=== PATIENT | male | born 1945 | race Caucasian/White ===

== ENCOUNTER 2018-11-26 13:06 | Inpatient (IN) | payer MEDICARE, OTHER ==
--- NOTE | 2018-11-26 13:58 | ER Document Report ---
ED Medical Screen (RME) - General Chief Complaint: Shortness Of Breath Stated Complaint: SHORTNESS OF BREATH Time Seen by Provider: 11/26/18 13:54 Primary Care Provider: JUSTINE KWAN MD [Primary Care Provider] - Follow up as needed Mode of Arrival: Ambulatory Information source: Patient TRAVEL OUTSIDE OF THE [place] IN LAST 30 DAYS: No - HPI Patient complains to provider of: SOB Notes: 11/26/18 13:56 Patient here with complaints of shortness of breath with leg swelling and chest pain. Patient has a history of congestive heart failure. He also has a history of atrial fibrillation. Exam No distress, nontoxic. Lung sounds diminished to the bilateral bases. Irregular heart rate. Bilateral lower extremity edema noted. Plan CBC, CMP, CPK, CK-MB, BMP, chest x-ray, EKG, troponin, coags. An initial examination was made on the patient as part of the triage process, and it was determined a more comprehensive evaluation was necessary. Initial labs were ordered and patient was transferred to another provider in the ED who assumed care and finished evaluation and plan. - Related Data Allergies/Adverse Reactions: No Known Allergies Allergy (Unverified 11/05/18 14:18) Past Medical History - Past Medical History Cardiac Medical History: Reports: Hx Atrial Fibrillation, Hx Congestive Heart Failure, Hx Coronary Artery Disease, Hx Hypertension Renal/ Medical History: Denies: Hx Peritoneal Dialysis Physical Exam - Vital signs Vitals: Pulse Resp BP Pulse Ox 84 22 H 123/84 92 11/26/18 13:39 11/26/18 13:39 11/26/18 13:39 11/26/18 13:39 Course - Vital Signs Vital signs: Temp Pulse Resp BP Pulse Ox 84 22 H 123/84 92 11/26/18 13:39 11/26/18 13:39 11/26/18 13:39 11/26/18 13:39 Doctor's Discharge - Discharge Referrals: JUSTINE KWAN MD [Primary Care Provider] - Follow up as needed
--- NOTE | 2018-11-26 14:28 | RADIOLOGY REPORT (SQ) ---
EXAM DESCRIPTION: CHEST 2 VIEWS COMPLETED DATE/TIME: 11/26/2018 2:04 pm REASON FOR STUDY: shortness of breath COMPARISON: None. EXAM PARAMETERS: NUMBER OF VIEWS: two views TECHNIQUE: Digital Frontal and Lateral radiographic views of the chest acquired. RADIATION DOSE: NA LIMITATIONS: none FINDINGS: LUNGS AND PLEURA: No opacities, masses or pneumothorax. No pleural effusion. MEDIASTINUM AND HILAR STRUCTURES: No masses or contour abnormalities. HEART AND VASCULAR STRUCTURES: Heart normal size. No evidence for failure. BONES: No acute findings. HARDWARE: None in the chest. OTHER: No other significant finding. IMPRESSION: NO ACUTE RADIOGRAPHIC FINDING IN THE CHEST. TECHNICAL DOCUMENTATION: JOB ID: [id number] [employer]- All Rights Reserved Reading location - IP/workstation name: [email or web address]
[2018-11-26 16:01] LABS: ABSOLUTE BASOPHILS # (AUTO) 0.1 10^3/uL (0.0-0.2); ABSOLUTE EOSINOPHILS # (AUTO) 0.1 10^3/uL (0.0-0.6); ABSOLUTE LYMPHOCYTES (AUTO) 0.9 10^3/uL (0.5-4.7); ABSOLUTE MONOCYTES (AUTO) 1.1 10^3/uL (0.1-1.4); ABSOLUTE NEUT (AUTO) 6.6 10^3/uL (1.7-8.2); BASOPHILS % (AUTO) 0.7 % (0-2); EOSINOPHILS % (AUTO) 0.9 % (0-6); HEMATOCRIT 36.7 % (37.9-51.0); HEMOGLOBIN 11.8 g/dL (13.5-17.0); LYMPHOCYTES % (AUTO) 10.1 % (13-45); MEAN CORPUSCULAR HEMOGLOBIN 27.6 pg (27.0-33.4); MEAN CORPUSCULAR HGB CONC 32.1 g/dL (32.0-36.0); MEAN CORPUSCULAR VOLUME 86 fl (80-97); MONOCYTES % (AUTO) 12.2 % (3-13); PLATELET COUNT 257 10^3/uL (150-450); RED BLOOD COUNT 4.27 10^6/uL (4.35-5.55); RED CELL DISTRIBUTION WIDTH 17.2 % (11.5-14.0); SEGMENTED NEUTROPHILS % (AUTO) 76.1 % (42-78); TOTAL CELLS COUNTED % (AUTO) 100 %; WHITE BLOOD COUNT 8.7 10^3/uL (4.0-10.5)
[2018-11-26 16:08] LABS: INTERNATIONAL RATION (INR) 2.38; PROTHROMBIN TIME 27.1 SEC (11.4-15.4)
[2018-11-26 16:09] LABS: PARTIAL THROMBOPLASTIN TIME 47.5 SEC (23.5-35.8)
[2018-11-26 16:25] LABS: ALANINE AMINOTRANSFERASE 83 U/L (21-72); ALBUMIN 3.8 g/dL (3.5-5.0); ALKALINE PHOSPHATASE 86 U/L (38-126); ANION GAP 12 (5-19); ASPARTATE AMINO TRANSFERASE 93 U/L (17-59); BILIRUBIN,DIRECT 0.5 mg/dL (0.0-0.4); BILIRUBIN,TOTAL 0.8 mg/dL (0.2-1.3); BLOOD UREA NITROGEN 18 mg/dL (7-20); CALCIUM 9.8 mg/dL (8.4-10.2); CARBON DIOXIDE 32 mmol/L (22-30); CHLORIDE 94 mmol/L (98-107); GLUCOSE 108 mg/dL (75-110); POTASSIUM 4.2 mmol/L (3.6-5.0); SODIUM 138.1 mmol/L (137-145)
[2018-11-26 16:28] LABS: CREATINE KINASE < 20 U/L (55-170)
[2018-11-26 16:37] LABS: CREATINE KINASE MB 0.67 ng/mL (<4.55); TROPONIN I 0.014 ng/mL
[2018-11-26] MEDS ORDERED: FUROSEMIDE INJ/PF 100 MG/10 ML SDV IV ONE (19:15)
--- NOTE | 2018-11-26 19:17 | ER Document Report ---
ED General - General Chief Complaint: Shortness Of Breath Stated Complaint: SHORTNESS OF BREATH Time Seen by Provider: 11/26/18 13:54 Primary Care Provider: JUSTINE KWAN MD [Primary Care Provider] - Follow up as needed Mode of Arrival: Ambulatory Notes: Patient is a 73-year-old male with past medical history of hypertension, hyperlipidemia, CHF, coronary artery disease, presents due to concerns of progressively worsening bilateral lower extremity edema, generalized weakness, and shortness of breath. States that his symptoms started over the last 3 months, has become much more prominent in the past several weeks. Regards these as being moderate to severe. Worsened by exertion or standing for prolonged period of time. Has been trying with his primary care physician to get the sym ptoms under control with changing from furosemide to Bumex and starting on spironolactone as well as compression stockings but notes that these interventions have not been successful in reducing the edema in his legs or improving his shortness of breath. Patient notes orthopnea, states that he is n o longer able to sleep in his bed and mostly sleeps in the recliner. Denies any current chest pain. TRAVEL OUTSIDE OF THE [place] IN LAST 30 DAYS: No - Related Data Allergies/Adverse Reactions: No Known Allergies Allergy (Unverified 11/05/18 14:18) Past Medical History - General Information source: Patient - Social History Smoking Status: Former Smoker Chew tobacco use (# tins/day): No Frequency of alcohol use: None Drug Abuse: None Lives with: Spouse/Significant other Family History: Reviewed & Not Pertinent Patient has suicidal ideation: No Patient has homicidal ideation: No - Past Medical History Cardiac Medical History: Reports: Hx Atrial Fibrillation, Hx Congestive Heart Failure, Hx Coronary Artery Disease, Hx Hypertension Renal/ Medical History: Denies: Hx Peritoneal Dialysis Review of Systems - Review of Systems Notes: Constitutional: Negative for fever. HENT: Negative for sore throat. Eyes: Negative for visual changes. Cardiovascular: Negative for chest pain. Respiratory: Positive for shortness of breath. Gastrointestinal: Negative for abdominal pain, vomiting or diarrhea. Genitourinary: Negative for dysuria. Musculoskeletal: Positive for bilateral lower extremity edema Skin: Negative for rash. Neurological: Negative for headaches, weakness or numbness. 10 point ROS negative except as marked above and in HPI. Physical Exam - Vital signs Vitals: Pulse Resp BP Pulse Ox 84 22 H 123/84 92 05/20/19 13:39 11/26/18 13:39 11/26/18 13:39 11/26/18 13:39 Interpretation: Tachypneic Notes: PHYSICAL EXAMINATION: GENERAL: Elderly male, somewhat frail in appearance but in no acute distress HEAD: Atraumatic, normocephalic. EYES: Pupils equal round and reactive to light, extraocular movements intact, sclera anicteric, conjunctiva are normal. ENT: nares patent, oropharynx clear without exudates. Moist mucous membranes. NECK: Normal range of motion, supple without lymphadenopathy LUNGS: Coarse rales throughout particularly the bases bilaterally. No overt distress or retractions. HEART: Irregular regular rate and rhythm without murmurs ABDOMEN: Soft, nontender, normoactive bowel sounds. No guarding, no rebound. No masses appreciated. EXTREMITIES: Normal range of motion, 4+ pitting edema bilaterally that is equal and symmetric to just above the level of the knee. no cyanosis. NEUROLOGICAL: No focal neurological deficits. Moves all extremities spontaneously and on command. PSYCH: Normal mood, normal affect. SKIN: Warm, Dry, normal turgor, no rashes or lesions noted. Course - Re-evaluation Re-evalutation: 11/26/18 19:14 Patient presents with progressively worsening bilateral lower extremity edema, increasing shortness of breath and orthopnea over the last several months although much worse in the past several weeks. The patient has gained 4.2 kg since the end of October 2018. His BNP is also elevated relative to that time. He has 3+ pitting edema above the level of the knees bilaterally and does have coarse rales in all lung lopez although chest x-ray does not show overt pulmonary edema. The patient has been following with his employment office clerk and has had increasing doses of Bumex without any relief. He has also been wearing compression stockings. At this point it appears that the patient has failed outpatient management and require hospitalization for IV diuresis. He and his are in agreement. IV furosemide is been initiated. Will continue to monitor until hospitalist is able to accept the patient. 11/26/18 19:44 I discussed this case with the hospitalist Dr. Gray. He has accepted the patient for admission. - Vital Signs Vital signs: Temp Pulse Resp BP Pulse Ox 97.3 F 84 16 100/79 98 11/26/18 18:30 11/26/18 18:30 11/26/18 18:30 11/26/18 18:30 11/26/18 18:30 - Laboratory Result Diagrams: 11/26/18 15:34 11/26/18 15:34 Laboratory results interpreted by me: 11/26/18 11/26/18 11/26/18 15:34 15:34 15:34 RBC 4.27 L Hgb 11.8 L Hct 36.7 L RDW 17.2 H Lymphocytes % 10.1 L PT 27.1 H APTT 47.5 H Chloride 94 L Carbon Dioxide 32 H Creatinine 1.28 H Est GFR (Non-Af Amer) 55 L Direct Bilirubin 0.5 H AST 93 H ALT 83 H Creatine Kinase < 20 L NT-Pro-B Natriuret Pep 11/26/18 15:34 RBC Hgb Hct RDW Lymphocytes % PT APTT Chloride Carbon Dioxide Creatinine Est GFR (Non-Af Amer) Direct Bilirubin AST ALT Creatine Kinase NT-Pro-B Natriuret Pep 83851 H - Diagnostic Test Radiology reviewed: Image reviewed, Reports reviewed Radiology results interpreted by me: 11/26/18 19:15 Chest x-ray: No overt pulmonary edema - EKG Interpretation by Me Additional EKG results interpreted by me: 11/26/18 19:15 Atrial fibrillation, rates ranging between [address] elevations or depressions. QTC is 477. Discharge - Discharge Clinical Impression: Bilateral lower extremity edema, Shortness of breath CHF exacerbation Qualifiers: Heart failure type: unspecified Qualified Code(s): I50.9 - Heart failure, unspecified Condition: Fair Disposition: ADMITTED INPATIENT Admitting Provider: Marina (Hospitalist) Unit Admitted: Medical Floor Referrals: JUSTINE KWAN MD [Primary Care Provider] - Follow up as needed
[2018-11-26] MEDS ORDERED: FUROSEMIDE INJ/PF 20 MG/2 ML SDV IV ONE (19:44)
[2018-11-26] MEDS ORDERED: FUROSEMIDE INJ/PF 40 MG/4 ML SDV ONE (19:45)
[2018-11-26] MEDS ORDERED: MAGNESIUM HYDROXIDE SUSP 30 ML UDCUP PO PRN (20:38)
[2018-11-26] MEDS ORDERED: TEMAZEPAM 7.5 MG CAPSULE PO PRN (20:38)
[2018-11-26] MEDS ORDERED: ONDANSETRON HCL INJ/PF 4 MG/2 ML SDV IV PRN (20:38)
[2018-11-26] MEDS ORDERED: MAG HYDROX/AL HYDROX/SIMETH SUSP 30 ML UDCUP PO PRN (20:38)
[2018-11-26] MEDS ORDERED: MORPHINE SULFATE 10 MG/ML INJ IV PRN ×4 (20:46→21:01)
[2018-11-26] MEDS ORDERED: ACETAMINOPHEN 325 MG TABLET PO PRN (20:46)
[2018-11-26] MEDS ORDERED: DOPAMINE HCL/DEXTROSE 5%-WATER 800 MG/250 ML RTUINJ IV PRN (20:53)
[2018-11-26] MEDS: HEPARIN SOD (PORCINE) 5,000 UNIT/ML 1 ML SYRINGE SUBCUT SCH (21:33)
[2018-11-26] MEDS: FAMOTIDINE 20 MG TABLET PO SCH (21:33)
[2018-11-26] MEDS: NORMAL SALINE 250 ML with FUROSEMIDE 250 MG IV PRN ×2 (21:56)
[2018-11-26] MEDS ORDERED: FAMOTIDINE 20 MG TABLET PO SCH (22:00)
[2018-11-26 22:55] LABS: CREATINE KINASE MB 0.63 ng/mL (<4.55)
[2018-11-26 22:59] LABS: TROPONIN I 0.032 ng/mL
--- NOTE | 2018-11-27 04:04 | PDOC H&P ---
History of Present Illness Admission Date/PCP: 11/26/18 19:58 JUSTINE KWAN Patient complains of: Edema History of Present Illness: GARCIA SHERMAN is a 73 year old male who presents to the emergency room with a 3-month history of gradually worsening edema of his lower extremities. He admits that along with his gradually worsening edema he has began experiencing dyspnea on exertion, generalized weakness and most recently dyspnea at rest with severe orthopnea causing him to have to sleep sitting up in a chair. He has also noted development of 3 bullous lesions of his bilateral extremities. He admits that his dyspnea is significantly increased with any type of exertion but also with standing upright. He has been seeing his primary care physician and a apparel patternmaker about this problem but despite numerous medication changes and courses of treatment he has not shown any improvement. In the emergency room he was found to have an elevated BNP at 12,500 and significant edema. He was subsequently admitted to the hospital for further evaluation and treatment. Past Medical History Cardiac Medical History: Reports: Atrial Fibrillation, Congestive Heart Failure, Coronary Artery Disease, Hypertension Pulmonary Medical History: Denies: Asthma, Chronic Obstructive Pulmonary Disease (COPD), Respiratory Failure EENT Medical History: Reports: Eyes - Prescription lenses Denies: Ears - Hearing aids Neurological Medical History: Denies: Hemorrhagic CVA, Ischemic CVA, Seizures Endocrine Medical History: Denies: Diabetes Mellitus Type 1, Diabetes Mellitus Type 2, Hyperthyroidism, Hypothyroidism Renal/ Medical History: Denies: Chronic Kidney Disease, Nephrolithiasis Malignancy Medical History: Reports: None GI Medical History: Denies: Cirrhosis, Hepatitis Musculoskeltal Medical History: Denies: Arthritis, Gout Skin Medical History: Denies: Eczema, Psoriasis Psychiatric Medical History: Reports: Tobacco Dependency Denies: Alcohol Dependency, Substance Abuse Traumatic Medical History: Reports: None Hematology: Denies: Anemia, Bleeding Tendencies Infectious Medical History: Reports: None Past Surgical History Past Surgical History: Reports: None Social History Information Source: Patient Lives with: Spouse/Significant other Smoking Status: Former Smoker Frequency of Alcohol Use: None Hx Recreational Drug Use: No Drugs: None Hx Prescription Drug Abuse: No - Advance Directive Resuscitation Status: Full Code Surrogate healthcare decision maker:: Merced Sherman Family History Family History: CAD, Malignancy, Other - Alzheimer's disease, congestive heart failure. denies: DM, Hypertension Parental Family History Reviewed: Yes Children Family History Reviewed: No Sibling(s) Family History Reviewed.: Yes Medication/Allergy Home Medications: Apixaban [Eliquis 5 mg Tablet] 5 mg PO BID 11/26/18 Bumetanide [Bumex 1 mg Tablet] 1 mg PO DAILY 11/26/18 Carvedilol [Coreg 3.125 mg Tablet] 3.125 mg PO Q12 11/26/18 Furosemide [Lasix 40 mg Tablet] 40 mg PO BID 11/26/18 Lovastatin [Mevacor] 10 mg PO DAILY 11/26/18 Metformin HCl [Glucophage] 500 mg PO TID 11/26/18 Metoprolol Succinate [Toprol Xl 25 mg Tab.sr] 25 mg PO DAILY 11/26/18 Spironolactone [Aldactone 25 mg Tablet] 25 mg PO BID 11/26/18 Valsartan/Hydrochlorothiazide [Diovan Hct 160-25 mg Tablet] 1 tab PO DAILY 11/26/18 Allergies/Adverse Reactions: No Known Allergies Allergy (Unverified 11/05/18 14:18) Review of Systems Constitutional: PRESENT: as per HPI, weakness. ABSENT: chills, fever(s) Eyes: ABSENT: visual disturbances, other - Ocular pain Ears: ABSENT: hearing changes, other - Ear pain Nose, Mouth, and Throat: ABSENT: mouth pain, sore throat Cardiovascular: PRESENT: as per HPI, dyspnea on exertion, edema, orthropnea. ABSENT: chest pain, palpitations Respiratory: PRESENT: as per HPI, dyspnea. ABSENT: cough Gastrointestinal: ABSENT: abdominal pain, constipation, diarrhea, nausea, vomiting Genitourinary: ABSENT: difficulty urinating, dysuria, hematuria Musculoskeletal: ABSENT: back pain, joint swelling, muscle weakness Integumentary: PRESENT: lesions - 3 bullous lesions present on the bilateral lower extremities left proximal lateral leg left medial ankle and right posterior heel. ABSENT: pruritus, rash Neurological: ABSENT: confusion, convulsions, focal weakness, memory loss, syncope Psychiatric: ABSENT: anxiety, depression Endocrine: ABSENT: cold intolerance, heat intolerance Hematologic/Lymphatic: ABSENT: easy bleeding, easy bruising Physical Exam Vital Signs: Temp Pulse Resp BP Pulse Ox 97.3 F 84 16 100/79 98 11/26/18 18:30 11/26/18 18:30 11/26/18 18:30 11/26/18 18:30 11/26/18 18:30 Intake & Output 11/24/18 11/25/18 11/26/18 23:59 23:59 23:59 Weight 79.5 kg General appearance: PRESENT: no acute distress, cooperative Head exam: PRESENT: atraumatic, normocephalic Eye exam: ABSENT: conjunctival injection, scleral icterus Ear exam: PRESENT: normal external ear exam. ABSENT: bleeding, drainage Mouth exam: PRESENT: dry mucosa, neck supple Neck exam: PRESENT: JVD - Moderate bilateral JVD at 45 degrees elevation. ABSENT: thyromegaly, tracheal deviation Respiratory exam: PRESENT: decreased breath sounds - Decreased breath sounds at both bases, rales - Bibasilar fine rales, symmetrical, tachypnea. ABSENT: prolonged expiratory phas, rhonchi, wheezes Cardiovascular exam: PRESENT: gallop - S4 gallop noted, RRR, rubs. ABSENT: c licks Pulses: PRESENT: normal radial pulses. ABSENT: normal dorsalis pedis pul - Dorsalis pedis pulses decreased due to edema Vascular exam: PRESENT: normal capillary refill. ABSENT: pallor GI/Abdominal exam: PRESENT: normal bowel sounds, soft Rectal exam: PRESENT: deferred Extremities exam: PRESENT: pedal edema, other - 3+ pitting pretibial edema. ABSENT: joint swelling Musculoskeletal exam: PRESENT: full ROM. ABSENT: deformity, dislocation Neurological exam: PRESENT: alert, oriented to person, oriented to place, o riented to time, oriented to situation, CN II-XII grossly intact. ABSENT: motor sensory deficit Psychiatric exam: PRESENT: appropriate affect, normal mood Skin exam: PRESENT: dry, intact, warm. ABSENT: jaundice, rash, urticaria Results Laboratory Results: 11/26/18 15:34 11/26/18 15:34 11/26/18 11/26/18 15:34 15:34 WBC 8.7 RBC 4.27 L Hgb 11.8 L Hct 36.7 L MCV 86 MCH 27.6 MCHC 32.1 RDW 17.2 H Plt Count 257 Seg Neutrophils % 76.1 Lymphocytes % 10.1 L Monocytes % 12.2 Eosinophils % 0.9 Basophils % 0.7 Absolute Neutrophils 6.6 Absolute Lymphocytes 0.9 Absolute Monocytes 1.1 Absolute Eosinophils 0.1 Absolute Basophils 0.1 Sodium 138.1 Potassium 4.2 Chloride 94 L Carbon Dioxide 32 H Anion Gap 12 BUN 18 Creatinine 1.28 H Est GFR ( Amer) > 60 Est GFR (Non-Af Amer) 55 L Glucose 108 Calcium 9.8 Total Bilirubin 0.8 AST 93 H ALT 83 H Alkaline Phosphatase 86 Total Protein 7.0 Albumin 3.8 11/26/18 11/26/18 15:34 15:34 Creatine Kinase < 20 L CK-MB (CK-2) 0.67 Troponin I 0.014 NT-Pro-B Natriuret Pep [id number] H Impressions: Chest X-Ray 11/26/18 00:00 IMPRESSION: NO ACUTE RADIOGRAPHIC FINDING IN THE CHEST. Assessment and Plan - Diagnosis (1) CHF exacerbation Qualifiers: Heart failure type: unspecified Qualified Code(s): I50.9 - Heart failure, unspecified Is this a current diagnosis for this admission?: Yes Plan: Patient will be treated with a Lasix infusion and a renal dose dopamine infusion. A cardiology consultation will be obtained and an echocardiogram will be performed. Serial cardiac enzymes will be obtained and the patient will be observed closely on IMCU. He will use morphine sulfate 2-4 mg IV every 2 hours as needed for dyspnea or pain on a sliding scale basis. (2) Hypertension Qualifiers: Hypertension type: essential hypertension Qualified Code(s): I10 - Essential (primary) hypertension Is this a current diagnosis for this admission?: Yes Plan: Patient will be continued on appropriate antihypertensive regiment that will also help to treat his congestive heart failure. Cardiology consultation will be of great deal of value in determining the best regiment for this patient. (3) Coronary artery disease Qualifiers: Coronary Disease-Associated Artery/Lesion type: [place] artery [place] vs. transplanted heart: [place] heart Associated angina: angina presence unspecified Qualified Code(s): I25.10 - Atherosclerotic heart disease of [place] coronary artery without angina pectoris Is this a current diagnosis for this admission?: Yes Plan: Patient be continued on appropriate regimen for ongoing prevention of coronary artery disease which will be integrated into the treatment of his congestive heart failure. Cardiology consultation will be invaluable and determining the best regimen for this patient. (4) Acute bullous dermatitis Is this a current diagnosis for this admission?: Yes Plan: Patient's bullous dermatitis is due to acute edema of his lower extremities causing stasis-like changes and bullae. Treatment will be to cleanse the area well with an antibacterial soap and after thorough drying placement of a Tegaderm dressing. - Time Time Spent with patient: 25-34 minutes Medications reviewed and adjusted accordingly: Yes Anticipated discharge: Home - Inpatient Certification Based on my medical assessment, after consideration of the patient's comorbidities, presenting symptoms, or acuity I expect that the services needed warrant INPATIENT care.: Yes I certify that my determination is in accordance with my understanding of Medicare's requirements for reasonable and necessary INPATIENT services [42 CFR 412.3e].: Yes Medical Necessity: Failure to Improve With Outpatient Therapy, Need Close Monito ring Due to Risk of Patient Decompensation, Need For Continuous Telemetry Monitoring, Risk of Complication if Not Cared For in Hospital
[2018-11-27 04:53] LABS: HEMOGLOBIN 12.1 g/dL (13.5-17.0); MEAN CORPUSCULAR HEMOGLOBIN 27.4 pg (27.0-33.4); MEAN CORPUSCULAR VOLUME 86 fl (80-97); PLATELET COUNT 226 10^3/uL (150-450); RED BLOOD COUNT 4.43 10^6/uL (4.35-5.55)
[2018-11-27 05:21] LABS: ANION GAP 17 (5-19); BLOOD UREA NITROGEN 21 mg/dL (7-20); CARBON DIOXIDE 31 mmol/L (22-30); CHLORIDE 93 mmol/L (98-107); CHOLESTEROL 150.81 mg/dL (0-200); CREATINE KINASE 22 U/L (55-170); GLUCOSE 107 mg/dL (75-110); POTASSIUM 4.1 mmol/L (3.6-5.0); SODIUM 141.3 mmol/L (137-145); TRIGLYCERIDES 104 mg/dL (<150)
[2018-11-27 05:28] LABS: CREATINE KINASE MB 0.59 ng/mL (<4.55); TROPONIN I 0.012 ng/mL
[2018-11-27] MEDS: HEPARIN SOD (PORCINE) 5,000 UNIT/ML 1 ML SYRINGE SUBCUT SCH ×3 (05:30→21:13)
[2018-11-27 05:31] LABS: DIRECT LDL 100 mg/dL (<100)
[2018-11-27 05:34] LABS: FREE T4 (FREE THYROXINE) 1.8 ng/dL (0.78-2.19)
[2018-11-27 05:39] LABS: FREE T3 2.87 pg/mL (2.77-5.27)
[2018-11-27 06:37] LABS: THYROID STIMULATING HORMONE 1.44 uIU/mL (0.47-4.68)
[2018-11-27] MEDS: DOCUSATE SODIUM 100 MG CAPSULE PO SCH ×2 (09:12→17:12)
[2018-11-27 10:36] LABS: CREATINE KINASE MB 0.49 ng/mL (<4.55); TROPONIN I 0.016 ng/mL
[2018-11-27] MEDS: NORMAL SALINE 250 ML with FUROSEMIDE 250 MG IV PRN ×2 (10:42)
--- NOTE | 2018-11-27 16:58 | PDOC PROGRESS REPORT ---
Subjective Progress Note for:: 11/27/18 Subjective:: GARCIA GARCIA is a 73 year old male who presents to the emergency room with a 3-month history of gradually worsening edema of his lower extremities. He admits that along with his gradually worsening edema he has began experiencing dyspnea on exertion, generalized weakness and most recently dyspnea at rest with severe orthopnea causing him to have to sleep sitting up in a chair. He has also noted development of 3 bullous lesions of his bilateral extremities. He admits that his dyspnea is significantly increased with any type of exertion but also with standing upright. He has been seeing his primary care physician and a food science professor about this problem but despite numerous medication changes and courses of treatment he has not shown any improvement. In the emergency room he was found to have an elevated BNP at 12,500 and significant edema. He was frederick bsequently admitted to the hospital for further evaluation and treatment. 11/27/2018: Patient was started on Lasix drip. He actually feels better. Reason For Visit: ACUTE ON CHRONIC CONGESTIVE HEART FAILURE Physical Exam Vital Signs: Temp Pulse Resp BP Pulse Ox 97.4 F 107 H 16 117/57 L 100 11/27/18 11:48 11/27/18 15:00 11/27/18 11:48 11/27/18 15:00 11/27/18 11:48 Intake & Output 11/26/18 11/27/18 11/28/18 06:59 06:59 06:59 Intake Total 400 1410 Output Total 1895 2425 Balance -1495 -1015 Weight 168 lb 13.985 oz Exam: Patient is no acute distress Alert oriented to time place person No anxiety or depression Head: atraumatic normocephalic Pupils: are equal reactive Neck: is supple and trachea is central no lymphadenopathy No pharyngeal erythema or exudates Heart: Regular rate and rhythm. +2/3 bilateral lower extremity pitting edema Lungs: Bilateral scattered crackles Abdomen: nontender nondistended Neurological exam: unremarkable Musculoskeletal: No joint swelling or effusion chronic lower back pain and tenderness No suicidal or homicidal ideation Results Laboratory Results: 11/27/18 04:24 11/27/18 04:24 11/27/18 11/27/18 11/27/18 04:24 04:24 04:24 WBC 10.0 RBC 4.43 Hgb 12.1 L Hct 38.0 MCV 86 MCH 27.4 MCHC 32.0 RDW 17.0 H Plt Count 226 Sodium 141.3 Potassium 4.1 Chloride 93 L Carbon Dioxide 31 H Anion Gap 17 BUN 21 H Creatinine 1.15 Est GFR ( Amer) > 60 Est GFR (Non-Af Amer) > 60 Glucose 107 Calcium 10.0 Magnesium 2.1 Triglycerides 104 Cholesterol 150.81 LDL Cholesterol Direct 100 VLDL Cholesterol 21.0 HDL Cholesterol 34 L TSH 1.44 Free T4 1.80 Free T3 pg/mL 2.87 11/26/18 11/26/18 11/26/18 15:34 15:34 22:10 Creatine Kinase < 20 L < 20 L CK-MB (CK-2) 0.67 Troponin I 0.014 NT-Pro-B Natriuret Pep [id number] H 11/26/18 11/27/18 11/27/18 22:10 04:24 04:24 Creatine Kinase Cancelled CK-MB (CK-2) 0.63 0.59 Troponin I 0.032 0.012 NT-Pro-B Natriuret Pep 11/27/18 11/27/18 11/27/18 04:24 09:48 09:48 Creatine Kinase 22 L < 20 L CK-MB (CK-2) 0.49 Troponin I 0.016 NT-Pro-B Natriuret Pep Impressions: Chest X-Ray 11/26/18 00:00 IMPRESSION: NO ACUTE RADIOGRAPHIC FINDING IN THE CHEST. Assessment and Plan - Diagnosis (1) CHF exacerbation Qualifiers: Heart failure type: unspecified Qualified Code(s): I50.9 - Heart failure, unspecified Is this a current diagnosis for this admission?: Yes Plan: Patient will be treated with a Lasix infusion and a renal dose dopamine infusion. A cardiology consultation will be obtained and an echocardiogram will be performed. Serial cardiac enzymes will be obtained and the patient will be observed closely on IMCU. He will use morphine sulfate 2-4 mg IV every 2 hours as needed for dyspnea or pain on a sliding scale basis. 11/27/2018: Continues on Lasix drip. Improving. Echocardiogram ordered. Cardiology consult is pending. (2) Bilateral lower extremity edema Is this a current diagnosis for this admission?: Yes Plan: Daily diuresis as above. Monitor renal function. (3) Coronary artery disease Qualifiers: Coronary Disease-Associated Artery/Lesion type: [place] artery [place] vs. transplanted heart: [place] heart Associated angina: angina presence unspecified Qualified Code(s): I25.10 - Atherosclerotic heart disease of [place] coronary artery without angina pectoris Is this a current diagnosis for this admission?: Yes Plan: Patient be continued on appropriate regimen for ongoing prevention of coronary artery disease which will be integrated into the treatment of his congestive heart failure. Cardiology consultation will be invaluable and determining the best regimen for this patient. 11/27/2018: Continue cardiac medications. Denies chest pain. (4) Hypertension Qualifiers: Hypertension type: essential hypertension Qualified Code(s): I10 - Essential (primary) hypertension Is this a current diagnosis for this admission?: Yes Plan: Patient will be continued on appropriate antihypertensive regiment that will also help to treat his congestive heart failure. Cardiology consultation will be of great deal of value in determining the best regiment for this patient. 11/27/2018: Continue current medications. Monitor blood pressure.
[2018-11-27 18:48] LABS: ANION GAP 15 (5-19); BLOOD UREA NITROGEN 17 mg/dL (7-20); CARBON DIOXIDE 35 mmol/L (22-30); CHLORIDE 89 mmol/L (98-107); GLUCOSE 145 mg/dL (75-110); SODIUM 138.8 mmol/L (137-145)
[2018-11-27 18:53] LABS: POTASSIUM 2.9 mmol/L (3.6-5.0)
[2018-11-27] MEDS ORDERED: POTASSIUM CHLORIDE 10 MEQ CAPSULE.ER PO ONE (21:00)
[2018-11-27] MEDS: FAMOTIDINE 20 MG TABLET PO SCH (21:13)
[2018-11-27] MEDS: POTASSIUM CHLORIDE 20 MEQ/50 ML RTU IV SCH ×2 (21:15→23:32)
[2018-11-27] MEDS: CARVEDILOL 3.125 MG TABLET PO SCH (21:26)
[2018-11-28] MEDS: HEPARIN SOD (PORCINE) 5,000 UNIT/ML 1 ML SYRINGE SUBCUT SCH (05:13)
[2018-11-28 06:29] LABS: HEMATOCRIT 34.2 % (37.9-51.0); MEAN CORPUSCULAR HEMOGLOBIN 27.5 pg (27.0-33.4); MEAN CORPUSCULAR HGB CONC 32.1 g/dL (32.0-36.0); MEAN CORPUSCULAR VOLUME 86 fl (80-97); PLATELET COUNT 203 10^3/uL (150-450); RED BLOOD COUNT 3.99 10^6/uL (4.35-5.55); RED CELL DISTRIBUTION WIDTH 17.5 % (11.5-14.0); WHITE BLOOD COUNT 8.3 10^3/uL (4.0-10.5)
[2018-11-28 07:04] LABS: ANION GAP 10 (5-19); BLOOD UREA NITROGEN 18 mg/dL (7-20); CALCIUM 9.1 mg/dL (8.4-10.2); CARBON DIOXIDE 36 mmol/L (22-30); CHLORIDE 92 mmol/L (98-107); GLUCOSE 94 mg/dL (75-110); SODIUM 137.5 mmol/L (137-145)
[2018-11-28 07:17] LABS: POTASSIUM 3.9 mmol/L (3.6-5.0)
[2018-11-28] MEDS ORDERED: (PENDING PHARMACY ID) (Valsartan/Hydrochlorothiazide [Diovan Hct 160-25 Mg Tablet] 1 TAB) PO SCH (10:00)
[2018-11-28] MEDS ORDERED: (PENDING PHARMACY ID) (Lovastatin [Mevacor] 10 MG) PO SCH (10:00)
[2018-11-28] MEDS: VALSARTAN 160 MG TABLET PO SCH (11:15)
[2018-11-28] MEDS: DOCUSATE SODIUM 100 MG CAPSULE PO SCH ×2 (11:15→19:09)
[2018-11-28] MEDS: FUROSEMIDE 40 MG TABLET PO SCH ×2 (11:16→19:09)
[2018-11-28] MEDS: CARVEDILOL 3.125 MG TABLET PO SCH ×2 (11:16→23:12)
[2018-11-28] MEDS: APIXABAN 5 MG TABLET PO SCH ×2 (11:16→19:11)
[2018-11-28] MEDS: SPIRONOLACTONE 25 MG TABLET PO SCH ×2 (11:16→19:09)
[2018-11-28] MEDS: HYDROCHLOROTHIAZIDE 25 MG TABLET PO SCH (11:16)
--- NOTE | 2018-11-28 11:24 | EKG REPORT ---
SEVERITY:- ABNORMAL ECG - ATRIAL FIBRILLATION BORDERLINE IVCD WITH LAD INFERIOR INFARCT, OLD ANTEROLATERAL INFARCT, OLD BORDERLINE PROLONGED QT INTERVAL : Confirmed by: Cora Wu 28-Nov-2018 11:23:55
--- NOTE | 2018-11-28 15:24 | PDOC PROGRESS REPORT ---
Subjective Progress Note for:: 11/28/18 Subjective:: Subjective: GARCIA GARCIA is a 73 year old male who presents to the emergency room with a 3-month history of gradually worsening edema of his lower extremities. He admits that along with his gradually worsening edema he has began experiencing dyspnea on exertion, generalized weakness and most recently dyspnea at rest with severe orthopnea causing him to have to sleep sitting up in a chair. He has also noted development of 3 bullous lesions of his bilateral extremities. He admits that his dyspnea is significantly increased with any type of exertion but also with standing upright. He has been seeing his primary care physician and a environmental services manager about this problem but despite numerous medication changes and courses of treatment he has not shown any improvement. In the emergency room he was found to have an elevated BNP at 12,500 and significant edema. He was subsequently admitted to the hospital for further evaluation and treatment. 11/27/2018: Patient was started on Lasix drip. He actually feels better. 11/28/2018: Potassium has decreased significantly with Lasix drip and drip was stopped. Potassium was replaced and today's improved to 3.9. Edema significantly improved. Patient feels better. Physical examination: Patient is no acute distress Alert oriented to time place person No anxiety or depression Head: atraumatic normocephalic Pupils: are equal reactive Neck: is supple and trachea is central no lymphadenopathy No pharyngeal erythema or exudates Heart: Regular rate and rhythm. +2/3 bilateral lower extremity pitting edema Lungs: Bilateral scattered crackles Abdomen: nontender nondistended Neurological exam: unremarkable Musculoskeletal: No joint swelling or effusion chronic lower back pain and tenderness No suicidal or homicidal ideation Assessment and Plan (1) CHF exacerbation Qualifiers: Heart failure type: unspecified Qualified Code(s): I50.9 - Heart failure, unspecified Is this a current diagnosis for this admission?: Yes Plan: Patient will be treated with a Lasix infusion and a renal dose dopamine infusion. A cardiology consultation will be obtained and an echocardiogram will be performed. Serial cardiac enzymes will be obtained and the patient will be observed closely on IMCU. He will use morphine sulfate 2-4 mg IV every 2 hours as needed for dyspnea or pain on a sliding scale basis. 11/27/2018: Continues on Lasix drip. Improving. Echocardiogram ordered. Cardiology consult is pending. 11/28/2018: Lasix drip stopped. Patient developed severe hyperkalemia with potassium of 2.9. Continue oral diuretics. Echocardiogram done but report is pending. Discussed with Dr. Rader. (2) Bilateral lower extremity edema Is this a current diagnosis for this admission?: Yes Plan: Daily diuresis as above. Monitor renal function. 11/28/2018: Improved with diuresis. (3) Coronary artery disease Qualifiers: Coronary Disease-Associated Artery/Lesion type: [place] artery [place] vs. transplanted heart: [place] heart Associated angina: angina presence u nspecified Qualified Code(s): I25.10 - Atherosclerotic heart disease of [place] coronary artery without angina pectoris Is this a current diagnosis for this admission?: Yes Plan: Patient be continued on appropriate regimen for ongoing prevention of coronary artery disease which will be integrated into the treatment of his congestive heart failure. Cardiology consultation will be invaluable and determining the best regimen for this patient. 11/27/2018: Continue cardiac medications. Denies chest pain. (4) Hypertension Qualifiers: Hypertension type: essential hypertension Qualified Code(s): I10 - Essential (primary) hypertension Is this a current diagnosis for this admission?: Yes Plan: Patient will be continued on appropriate antihypertensive regiment that will also help to treat his congestive heart failure. Cardiology consultation will be of great deal of value in determining the best regiment for this patient. 11/27/2018: Continue current medications. Monitor blood pressure. Reason For Visit: ACUTE ON CHRONIC CONGESTIVE HEART FAILURE Physical Exam Vital Signs: Temp Pulse Resp BP Pulse Ox 97.9 F 93 17 107/74 99 11/28/18 11:10 11/28/18 11:10 11/28/18 11:10 11/28/18 11:10 11/28/18 11:10 Intake & Output 11/27/18 11/28/18 11/29/18 06:59 06:59 06:59 Intake Total 400 1790 555 Output Total 3279 3695 486 Balance -3808 -5063 -020 Weight 168 lb 13.985 oz 158 lb 11.725 oz Results Laboratory Results: 11/28/18 05:53 11/28/18 05:53 11/27/18 11/28/18 11/28/18 18:12 05:53 05:53 WBC 8.3 RBC 3.99 L Hgb 11.0 L Hct 34.2 L MCV 86 MCH 27.5 MCHC 32.1 RDW 17.5 H Plt Count 203 Sodium 138.8 137.5 Potassium 2.9 L* D 3.9 D Chloride 89 L 92 L Carbon Dioxide 35 H 36 H Anion Gap 15 10 BUN 17 18 Creatinine 1.11 1.17 Est GFR ( Amer) > 60 > 60 Est GFR (Non-Af Amer) > 60 > 60 Glucose 145 H 94 Calcium 9.0 9.1 Magnesium 2.0 11/26/18 11/26/18 11/26/18 15:34 15:34 22:10 Creatine Kinase < 20 L < 20 L CK-MB (CK-2) 0.67 Troponin I 0.014 NT-Pro-B Natriuret Pep 44471 H 11/26/18 11/27/18 11/27/18 22:10 04:24 04:24 Creatine Kinase Cancelled CK-MB (CK-2) 0.63 0.59 Troponin I 0.032 0.012 NT-Pro-B Natriuret Pep 11/27/18 11/27/18 11/27/18 04:24 09:48 09:48 Creatine Kinase 22 L < 20 L CK-MB (CK-2) 0.49 Troponin I 0.016 NT-Pro-B Natriuret Pep Impressions: Chest X-Ray 11/26/18 00:00 IMPRESSION: NO ACUTE RADIOGRAPHIC FINDING IN THE CHEST. Assessment and Plan - Diagnosis (1) CHF exacerbation Qualifiers: Heart failure type: unspecified Qualified Code(s): I50.9 - Heart failure, unspecified Is this a current diagnosis for this admission?: Yes (2) Bilateral lower extremity edema Is this a current diagnosis for this admission?: Yes (3) Coronary artery disease Qualifiers: Coronary Disease-Associated Artery/Lesion type: [place] artery [place] vs. transplanted heart: [place] heart Associated angina: angina presence unspecified Qualified Code(s): I25.10 - Atherosclerotic heart disease of [place] coronary artery without angina pectoris Is this a current diagnosis for this admission?: Yes (4) Hypertension Qualifiers: Hypertension type: essential hypertension Qualified Code(s): I10 - Essential (primary) hypertension Is this a current diagnosis for this admission?: Yes
[2018-11-28 17:52] LABS: ANION GAP 13 (5-19); BLOOD UREA NITROGEN 21 mg/dL (7-20); CALCIUM 9.1 mg/dL (8.4-10.2); CARBON DIOXIDE 35 mmol/L (22-30); CHLORIDE 87 mmol/L (98-107); GLUCOSE 132 mg/dL (75-110); POTASSIUM 4.1 mmol/L (3.6-5.0); SODIUM 135.4 mmol/L (137-145)
--- NOTE | 2018-11-28 18:32 | PDOC CONSULTATION ---
Consultation Consult Date: 11/28/18 Attending physician:: DENVER GARZA Provider Consulted: KUSUM CURRAN History of Present Illness Admission Date/PCP: 11/26/18 19:58 JUSTINE KWAN Patient complains of: dyspnea History of Present Illness: GARCIA GARCIA is a 73 year old male CABG 1992, Systemic hypertension, dyslipidemia and DM. Presented with worsening dyspnea and bilateral lower extremity edema. Echo 10/04/2018 in [place] office with my partner Dr. Gonzalez had showed LVEF 15-20% as well as severe RV dysfunction. In 2011 he had normal LV function on Echo. Lexisacan stress test 11/08/2018 showed predominantly fixed defect in the LAD/ RCA territory. EF 26%. Since admission he was approipriatekly diuresed and at the time of my exam is comfortable and laying flat in bed. No mention of chest pain. Tele - rate controlled atrial fibrillation. At home he is on Apixaban. Past Medical History Cardiac Medical History: Reports: Atrial Fibrillation, Congestive Heart Failure, Coronary Artery Disease, Hypertension Pulmonary Medical History: Denies: Asthma, Chronic Obstructive Pulmonary Disease (COPD), Respiratory Failure EENT Medical History: Reports: Eyes - Prescription lenses Denies: Ears - Hearing aids Neurological Medical History: Denies: Hemorrhagic CVA, Ischemic CVA, Seizures Endocrine Medical History: Denies: Diabetes Mellitus Type 1, Diabetes Mellitus Type 2, Hyperthyroidism, Hypothyroidism Renal/ Medical History: Denies: Chronic Kidney Disease, Nephrolithiasis Malignancy Medical History: Reports: None GI Medical History: Denies: Cirrhosis, Hepatitis Musculoskeltal Medical History: Denies: Arthritis, Gout Skin Medical History: Denies: Eczema, Psoriasis Psychiatric Medical History: Reports: Tobacco Dependency Denies: Alcohol Dependency, Substance Abuse Traumatic Medical History: Reports: None Hematology: Denies: Anemia, Bleeding Tendencies Infectious Medical History: Reports: None Past Surgical History Past Surgical History: Reports: None Social History Lives with: Spouse/Significant other Smoking Status: Former Smoker Frequency of Alcohol Use: None Hx Recreational Drug Use: No Drugs: None Hx Prescription Drug Abuse: No - Advance Directive Resuscitation Status: Full Code Family History Family History: CAD, Malignancy, Other - Alzheimer's disease, congestive heart f ailure. denies: DM, Hypertension Parental Family History Reviewed: No - No familial illness Children Family History Reviewed: NA Sibling(s) Family History Reviewed.: NA Medication/Allergy Home Medications: Apixaban [Eliquis 5 mg Tablet] 5 mg PO BID 11/26/18 Carvedilol [Coreg 3.125 mg Tablet] 3.125 mg PO Q12 11/26/18 Furosemide [Lasix 40 mg Tablet] 40 mg PO BID 11/26/18 Lovastatin [Mevacor] 10 mg PO DAILY 11/26/18 Metformin HCl [Glucophage] 500 mg PO TID 11/26/18 Spironolactone [Aldactone 25 mg Tablet] 25 mg PO BID 11/26/18 Valsartan/Hydrochlorothiazide [Diovan Hct 160-25 mg Tablet] 1 tab PO DAILY 11/26/18 Allergies/Adverse Reactions: No Known Allergies Allergy (Unverified 11/05/18 14:18) Review of Systems Constitutional: PRESENT: as per HPI Eyes: PRESENT: as per HPI Cardiovascular: PRESENT: dyspnea on exertion, edema, orthropnea Respiratory: PRESENT: dyspnea Neurological: PRESENT: as per HPI Physical Exam Vital Signs: Temp Pulse Resp BP Pulse Ox 97.6 F 65 14 96/64 L 100 11/28/18 15:25 11/28/18 15:25 11/28/18 15:25 11/28/18 16:18 11/28/18 15:25 Intake & Output 11/27/18 11/28/18 11/29/18 06:59 06:59 06:59 Intake Total 400 1790 555 Output Total 0781 6475 850 Balance -1495 -4685 -295 Weight 76.6 kg 72 kg General appearance: PRESENT: no acute distress, cooperative Head exam: PRESENT: atraumatic Eye exam: PRESENT: EOMI Neck exam: PRESENT: JVD Respiratory exam: PRESENT: crackles, decreased breath sounds, rales Cardiovascular exam: PRESENT: irregular rhythm, +S1, +S2 GI/Abdominal exam: PRESENT: soft Extremities exam: PRESENT: pedal edema, +1 edema Musculoskeletal exam: PRESENT: normal inspection Neurological exam: PRESENT: alert, awake, oriented to person, oriented to place, oriented to time, oriented to situation Skin exam: PRESENT: other Results Laboratory Results: 11/28/18 05:53 11/28/18 16:10 11/27/18 11/28/18 11/28/18 18:12 05:53 05:53 WBC 8.3 RBC 3.99 L Hgb 11.0 L Hct 34.2 L MCV 86 MCH 27.5 MCHC 32.1 RDW 17.5 H Plt Count 203 Sodium 138.8 137.5 Potassium 2.9 L* D 3.9 D Chloride 89 L 92 L Carbon Dioxide 35 H 36 H Anion Gap 15 10 BUN 17 18 Creatinine 1.11 1.17 Est GFR ( Amer) > 60 > 60 Est GFR (Non-Af Amer) > 60 > 60 Glucose 145 H 94 Calcium 9.0 9.1 Magnesium 2.0 11/28/18 16:10 WBC RBC Hgb Hct MCV MCH MCHC RDW Plt Count Sodium 135.4 L Potassium 4.1 Chloride 87 L Carbon Dioxide 35 H Anion Gap 13 BUN 21 H Creatinine 1.20 Est GFR ( Amer) > 60 Est GFR (Non-Af Amer) 59 L Glucose 132 H Calcium 9.1 Magnesium 11/26/18 11/26/18 11/26/18 15:34 15:34 22:10 Creatine Kinase < 20 L < 20 L CK-MB (CK-2) 0.67 Troponin I 0.014 NT-Pro-B Natriuret Pep 50854 H 11/26/18 11/27/18 11/27/18 22:10 04:24 04:24 Creatine Kinase Cancelled CK-MB (CK-2) 0.63 0.59 Troponin I 0.032 0.012 NT-Pro-B Natriuret Pep 11/27/18 11/27/18 11/27/18 04:24 09:48 09:48 Creatine Kinase 22 L < 20 L CK-MB (CK-2) 0.49 Troponin I 0.016 NT-Pro-B Natriuret Pep Impressions: Chest X-Ray 11/26/18 00:00 IMPRESSION: NO ACUTE RADIOGRAPHIC FINDING IN THE CHEST. Assessment & Plan - Diagnosis (1) CHF exacerbation Qualifiers: Heart failure type: combined systolic and diastolic Qualified Code(s): I50.43 - Acute on chronic combined systolic (congestive) and diastolic (congestive) heart failure Is this a current diagnosis for this admission?: Yes Plan: Has responded to diuretics. Maintain on oral furosemide. Continue other GDMT for CHF (2) Coronary artery disease Qualifiers: Coronary Disease-Associated Artery/Lesion type: [place] artery [place] vs. transplanted heart: [place] heart Associated angina: angina presence unspecified Qualified Code(s): I25.10 - Atherosclerotic heart disease of [place] coronary artery without angina pectoris Is this a current diagnosis for this admission?: Yes Plan: NO ischemia on stress test from 11/08/2018 Continue medical therapy for CAD (3) Hypertension Qualifiers: Hypertension type: essential hypertension Qualified Code(s): I10 - Essential (primary) hypertension Is this a current diagnosis for this admission?: Yes Plan: Watch BP as we diurese
--- NOTE | 2018-11-28 18:41 | XCELERA REPORT ---
[address] [address] Transthoracic Echocardiogram Report Name: GARCIA GARCIA Age: 73 yrs Gender: Male : 1945 Patient Status: Inpatient Patient Location: [address] [place] [address] Study Date: 11/27/2018 09:38 AM History: CHF Height: 63 in Weight: 175 lb BSA: 1.8 m2 Procedure: A two-dimensional transthoracic echocardiogram with color flow and Doppler was performed. The study was technically difficult with many images being suboptimal in quality. Reason For Study: CHF History: CHF. CAD. Diabetes. HTN. Hyperlipidemia. Ordering Physician: SANA PLAZA Performed By: Laure Velásquez Interpretation Summary There is severe global hypokinesis of the left ventricle. Left ventricular systolic function is moderate to severely reduced. LV EF is 15-20% The right ventricular systolic function is severely reduced. There is a moderate to severe amount of mitral regurgitation There is a moderate amount of tricuspid regurgitation There is no aortic valve stenosis There is no pericardial effusion. MMode/2D Measurements & Calculations RVDd: 4.7 cm LVIDd: 4.9 cm FS: 9.5 % EPSS: 2.3 cm IVSd: 0.86 cm LVIDs: 4.4 cm EDV(Teich): 113.2 ml LVPWd: 0.89 cm ESV(Teich): 89.6 ml EF(Teich): 20.9 % Ao root diam: 2.9 cm LVLd ap4: 8.4 cm SV(MOD-sp4): 35.0 ml EDV(MOD-sp4): 116.0 ml Ao root area: 6.7 cm2 LVLs ap4: 7.8 cm LA dimension: 4.6 cm ESV(MOD-sp4): 81.0 ml EF(MOD-sp4): 30.2 % Doppler Measurements & Calculations MV E max sharri: MV P1/2t max sharri: Ao V2 max: LV V1 max P.8 cm/sec 134.3 cm/sec 138.8 cm/sec 2.9 mmHg MV A max sharri: MV P1/2t: 38.6 msec Ao max P.7 mmHg LV V1 max: 40.0 cm/sec MVA(P1/2t): 5.7 cm2 84.9 cm/sec MV E/A: 3.3 MV dec slope: 1019 cm/sec2 MV dec time: 0.13 sec PA V2 max: TR max sharri: MV P1/2t-pr_phl: 63.7 cm/sec 319.7 cm/sec 38.6 msec PA max P.6 mmHg TR max P.9 mmHg Left Ventricle The left ventricle is mildly dilated. Left ventricular systolic function is moderate to severely reduced. LV EF is 15-20%. There is severe global hypokinesis of the left ventricle. There is anterior wall akinesis. There is proximal anterior wall akinesis. There is distal anterior wall akinesis. There is posterior wall severe hypokinesis. There is basal posterior wall severe hypokinesis. Right Ventricle The right ventricle is moderately dilated. The right ventricular systolic function is severely reduced. Atria The right atrium is moderately dilated. The left atrium is moderately dilated. Mitral Valve The mitral valve leaflets are sclerotic, but show no functional abnormalities. There is a moderate to severe amount of mitral regurgitation. Aortic Valve The aortic valve opens well. The aortic valve is calcified. The aortic valve is trileaflet. There is no aortic valve stenosis. Tricuspid Valve The tricuspid valve is not well visualized, but is grossly normal. There is a moderate amount of tricuspid regurgitation. Pulmonic Valve The pulmonic valve is not well seen, but is grossly normal. There is a trace amount of pulmonic regurgitation. Great Vessels The aortic root is normal size. The inferior vena cava appeared dilated and decreased < 50% with respiration (RAP 15-20 mmHg). Effusions There is no pericardial effusion. : SANA PLAZA > Mihir Rader
[2018-11-28 19:08] LABS: ANION GAP 13 (5-19); BLOOD UREA NITROGEN 21 mg/dL (7-20); CALCIUM 9.2 mg/dL (8.4-10.2); CARBON DIOXIDE 34 mmol/L (22-30); CHLORIDE 87 mmol/L (98-107); GLUCOSE 156 mg/dL (75-110); POTASSIUM 4.2 mmol/L (3.6-5.0); SODIUM 134.3 mmol/L (137-145)
[2018-11-28] MEDS: FAMOTIDINE 20 MG TABLET PO SCH (23:06)
[2018-11-29 06:40] LABS: HEMATOCRIT 32.4 % (37.9-51.0); HEMOGLOBIN 10.5 g/dL (13.5-17.0); MEAN CORPUSCULAR HEMOGLOBIN 27.6 pg (27.0-33.4); MEAN CORPUSCULAR HGB CONC 32.5 g/dL (32.0-36.0); MEAN CORPUSCULAR VOLUME 85 fl (80-97); PLATELET COUNT 191 10^3/uL (150-450); RED BLOOD COUNT 3.82 10^6/uL (4.35-5.55); RED CELL DISTRIBUTION WIDTH 17.8 % (11.5-14.0); WHITE BLOOD COUNT 7.6 10^3/uL (4.0-10.5)
[2018-11-29 07:00] LABS: ANION GAP 11 (5-19); BLOOD UREA NITROGEN 23 mg/dL (7-20); CALCIUM 9.2 mg/dL (8.4-10.2); CARBON DIOXIDE 34 mmol/L (22-30); CHLORIDE 90 mmol/L (98-107); GLUCOSE 97 mg/dL (75-110); POTASSIUM 4.1 mmol/L (3.6-5.0); SODIUM 134.5 mmol/L (137-145)
[2018-11-29] MEDS ORDERED: CARVEDILOL 3.125 MG TABLET PO ONE (09:00)
[2018-11-29] MEDS ORDERED: CARVEDILOL 3.125 MG TABLET PO SCH ×2 (10:00→18:00)
[2018-11-29] MEDS: APIXABAN 5 MG TABLET PO SCH (11:05)
[2018-11-29] MEDS: HYDROCHLOROTHIAZIDE 25 MG TABLET PO SCH (11:05)
[2018-11-29] MEDS: SPIRONOLACTONE 25 MG TABLET PO SCH (11:05)
[2018-11-29] MEDS: FUROSEMIDE 40 MG TABLET PO SCH (11:05)
[2018-11-29] MEDS: VALSARTAN 160 MG TABLET PO SCH (11:05)
[2018-11-29] MEDS: DOCUSATE SODIUM 100 MG CAPSULE PO SCH (11:05)
--- NOTE | 2018-11-29 12:27 | PDOC DISCHARGE SUMMARY ---
General - Admit/Disc Date/PCP Admission Date/Primary Care Provider: 11/26/18 19:58 JUSTINE KWAN Discharge Date: 11/29/18 - Discharge Diagnosis (1) CHF exacerbation Is this a current diagnosis for this admission?: Yes (2) Bilateral lower extremity edema Is this a current diagnosis for this admission?: Yes (3) Coronary artery disease Is this a current diagnosis for this admission?: Yes (4) Hypertension Is this a current diagnosis for this admission?: Yes - Additional Information Resuscitation Status: Full Code Discharge Diet: Cardiac Discharge Activity: Activity As Tolerated, Balance Activity w/Rest, Weigh Daily Home Medications: Apixaban [Eliquis 5 mg Tablet] 5 mg PO BID 11/26/18 Carvedilol [Coreg 3.125 mg Tablet] 3.125 mg PO Q12 11/26/18 Furosemide [Lasix 40 mg Tablet] 40 mg PO BID 11/26/18 Lovastatin [Mevacor] 10 mg PO DAILY 11/26/18 Metformin HCl [Glucophage] 500 mg PO TID 11/26/18 Spironolactone [Aldactone 25 mg Tablet] 25 mg PO BID 11/26/18 Valsartan/Hydrochlorothiazide [Diovan Hct 160-25 mg Tablet] 1 tab PO DAILY 11/26/18 History of Present Illness History of Present Illness: GARCIA GARCIA is a 73 year old male Hospital Course Hospital Course: Subjective: GARCIA GARCIA is a 73 year old male who presents to the emergency room with a 3-month history of gradually worsening edema of his lower extremities. He admits that along with his gradually worsening edema he has began experiencing dyspnea on exertion, generalized weakness and most recently dyspnea at rest with severe orthopnea causing him to have to sleep sitting up in a chair. He has also noted development of 3 bullous lesions of his bilateral extremities. He admits that his dyspnea is significantly increased with any type of exertion but also with standing upright. He has been seeing his primary care physician and a alterations tailor about this problem but despite numerous medication changes and courses of treatment he has not shown any improvement. In the emergency room he was found to have an elevated BNP at 12,500 and significant edema. He was subsequently admitted to the hospital for further evaluation and treatment. 11/27/2018: Patient was started on Lasix drip. He actually feels better. 11/28/2018: Potassium has decreased significantly with Lasix drip and drip was stopped. Potassium was replaced and today's improved to 3.9. Edema sig nificantly improved. Patient feels better. Physical examination: Patient is no acute distress Alert oriented to time place person No anxiety or depression Head: atraumatic normocephalic Pupils: are equal reactive Neck: is supple and trachea is central no lymphadenopathy No pharyngeal erythema or exudates Heart: Regular rate and rhythm. +2/3 bilateral lower extremity pitting edema Lungs: Bilateral scattered crackles Abdomen: nontender nondistended Neurological exam: unremarkable Musculoskeletal: No joint swelling or effusion chronic lower back pain and tenderness No suicidal or homicidal ideation Assessment and Plan (1) CHF exacerbation Patient will be treated with a Lasix infusion and a renal dose dopamine infusion. A cardiology consultation will be obtained and an echocardiogram will be performed. Serial cardiac enzymes will be obtained and the patient will be observed closely on IMCU. He will use morphine sulfate 2-4 mg IV every 2 hours as needed for dyspnea or pain on a sliding scale basis. 11/27/2018: Continues on Lasix drip. Improving. Echocardiogram ordered. Cardiology consult is pending. 11/28/2018: Lasix drip stopped. Patient developed severe hyperkalemia with potassium of 2.9. Continue oral diuretics. Echocardiogram done but report is pending. Discussed with Dr. Rader. (2) Bilateral lower extremity edema Daily diuresis as above. Monitor renal function. 11/28/2018: Improved with diuresis. (3) Coronary artery disease Patient be continued on appropriate regimen for ongoing prevention of coronary artery disease which will be integrated into the treatment of his congestive heart failure. Cardiology consultation will be invaluable and determining the best regimen for this patient. 11/27/2018: Continue cardiac medications. Denies chest pain. (4) Hypertension 11/27/2018: Continue current medications. Monitor blood pressure. She diuresed very well. He is significantly improved. Continue current diuretics and medications and follow-up with cardiology outpatient. Patient will be discharged to home with home care and outpatient wound care for his leg wounds.. Physical Exam Vital Signs: Temp Pulse Resp BP Pulse Ox 97.2 F 63 14 99/74 L 100 11/29/18 11:48 11/29/18 11:48 11/29/18 11:48 11/29/18 11:48 11/29/18 11:48 Intake & Output 11/28/18 11/29/18 11/30/18 06:59 06:59 06:59 Intake Total 1790 1265 Output Total 0875 1250 Balance -4685 15 Weight 158 lb 11.725 oz 161 lb 2.526 oz Results Laboratory Results: 11/29/18 05:53 11/29/18 05:53 11/28/18 11/28/18 11/29/18 16:10 17:57 05:53 WBC 7.6 RBC 3.82 L Hgb 10.5 L Hct 32.4 L MCV 85 MCH 27.6 MCHC 32.5 RDW 17.8 H Plt Count 191 Sodium 135.4 L 134.3 L Potassium 4.1 4.2 Chloride 87 L 87 L Carbon Dioxide 35 H 34 H Anion Gap 13 13 BUN 21 H 21 H Creatinine 1.20 1.35 H Est GFR ( Amer) > 60 > 60 Est GFR (Non-Af Amer) 59 L 52 L Glucose 132 H 156 H Calcium 9.1 9.2 Magnesium 11/29/18 05:53 WBC RBC Hgb Hct MCV MCH MCHC RDW Plt Count Sodium 134.5 L Potassium 4.1 Chloride 90 L Carbon Dioxide 34 H Anion Gap 11 BUN 23 H Creatinine 1.17 Est GFR ( Amer) > 60 Est GFR (Non-Af Amer) > 60 Glucose 97 Calcium 9.2 Magnesium 2.2 11/26/18 11/26/18 11/26/18 15:34 15:34 22:10 Creatine Kinase < 20 L < 20 L CK-MB (CK-2) 0.67 Troponin I 0.014 NT-Pro-B Natriuret Pep 60173 H 11/26/18 11/27/18 11/27/18 22:10 04:24 04:24 Creatine Kinase Cancelled CK-MB (CK-2) 0.63 0.59 Troponin I 0.032 0.012 NT-Pro-B Natriuret Pep 11/27/18 11/27/18 11/27/18 04:24 09:48 09:48 Creatine Kinase 22 L < 20 L CK-MB (CK-2) 0.49 Troponin I 0.016 NT-Pro-B Natriuret Pep Impressions: Chest X-Ray 11/26/18 00:00 IMPRESSION: NO ACUTE RADIOGRAPHIC FINDING IN THE CHEST. Qualifiers - * PATIENT BEING DISCHARGED WITH ANY OF THE FOLLOWING DIAGNOSIS: No Acute Heart Failure Is this a Heart Failure Patient?: Yes Documentation of LVEF assessment?: Planned for after discharge
[2018-11-29 14:36] VITALS: BP 82/56
--- NOTE | 2018-11-29 19:01 | PDOC PROGRESS REPORT ---
Subjective Progress Note for:: 11/29/18 Subjective:: Feels much better. Back to usual baseline Reason For Visit: ACUTE ON CHRONIC CONGESTIVE HEART FAILURE Physical Exam Vital Signs: Temp Pulse Resp BP Pulse Ox 97.2 F 63 14 82/56 L 100 11/29/18 14:25 11/29/18 14:25 11/29/18 14:25 11/29/18 14:25 11/29/18 14:25 Intake & Output 11/28/18 11/29/18 11/30/18 06:59 06:59 06:59 Intake Total 1790 1265 720 Output Total 6475 1250 100 Balance -4685 15 620 Weight 72 kg 73.1 kg General appearance: PRESENT: no acute distress Head exam: PRESENT: atraumatic Eye exam: PRESENT: EOMI Ear exam: PRESENT: normal external ear exam Teeth exam: PRESENT: edentulous Neck exam: PRESENT: full ROM Respiratory exam: PRESENT: decreased breath sounds Cardiovascular exam: PRESENT: irregular rhythm Pulses: PRESENT: normal radial pulses GI/Abdominal exam: PRESENT: soft Extremities exam: PRESENT: +1 edema Neurological exam: PRESENT: alert, oriented to person, oriented to place, oriented to time, oriented to situation - Edema has improved Results Laboratory Results: 11/29/18 05:53 11/29/18 05:53 11/28/18 11/29/18 11/29/18 17:57 05:53 05:53 WBC 7.6 RBC 3.82 L Hgb 10.5 L Hct 32.4 L MCV 85 MCH 27.6 MCHC 32.5 RDW 17.8 H Plt Count 191 Sodium 134.3 L 134.5 L Potassium 4.2 4.1 Chloride 87 L 90 L Carbon Dioxide 34 H 34 H Anion Gap 13 11 BUN 21 H 23 H Creatinine 1.35 H 1.17 Est GFR ( Amer) > 60 > 60 Est GFR (Non-Af Amer) 52 L > 60 Glucose 156 H 97 Calcium 9.2 9.2 Magnesium 2.2 11/26/18 11/26/18 11/26/18 15:34 15:34 22:10 Creatine Kinase < 20 L < 20 L CK-MB (CK-2) 0.67 Troponin I 0.014 NT-Pro-B Natriuret Pep 75811 H 11/26/18 11/27/18 11/27/18 22:10 04:24 04:24 Creatine Kinase Cancelled CK-MB (CK-2) 0.63 0.59 Troponin I 0.032 0.012 NT-Pro-B Natriuret Pep 11/27/18 11/27/18 11/27/18 04:24 09:48 09:48 Creatine Kinase 22 L < 20 L CK-MB (CK-2) 0.49 Troponin I 0.016 NT-Pro-B Natriuret Pep Impressions: Chest X-Ray 11/26/18 00:00 IMPRESSION: NO ACUTE RADIOGRAPHIC FINDING IN THE CHEST. Assessment & Plan - Diagnosis (1) CHF exacerbation Qualifiers: Heart failure type: combined systolic and diastolic Qualified Code(s): I50.43 - Acute on chronic combined systolic (congestive) and diastolic ( congestive) heart failure Is this a current diagnosis for this admission?: Yes Plan: Continue oral lasix. Continue other GDMT meds (2) Coronary artery disease Qualifiers: Coronary Disease-Associated Artery/Lesion type: [place] artery [place] vs. transplanted heart: [place] heart Associated angina: angina presence unspecified Qualified Code(s): I25.10 - Atherosclerotic heart disease of [place] coronary artery without angina pectoris Is this a current diagnosis for this admission?: Yes Plan: With dilated CMP. LV dysfunction is severe on Echo. EF 20% at best. Patient was asked to wear wearable defibrillator. Did not like it. Returned it to [facility]. Will have to discuss ICD for primary prevention. Will arrange as out patient (3) Hypertension Qualifiers: Hypertension type: essential hypertension Qualified Code(s): I10 - Essential (primary) hypertension Is this a current diagnosis for this admission?: Yes
[2018-11-29] MEDS ORDERED: SIMVASTATIN 10 MG TABLET PO SCH (22:00)
== END 2018-11-29 15:53 | disposition home health service (06) | DRG 293 ==
LOC: ER 13:06 → EH 19:58 → 3S 23:30
PROVIDERS: ADMIT Emergency Medicine; ATTEND Emergency Medicine
DX: I11.0 Hypertensive heart disease with heart failure (principal); I50.43 Acute on chronic combined systolic (congestive) and diastolic (congestive) heart failure; I25.10 Atherosclerotic heart disease of native coronary artery without angina pectoris; I48.91 Unspecified atrial fibrillation; E11.9 Type 2 diabetes mellitus without complications; Z82.49 Family history of ischemic heart disease and other diseases of the circulatory system; E87.6 Hypokalemia; L13.9 Bullous disorder, unspecified; Z87.891 Personal history of nicotine dependence; Z79.02 Long term (current) use of antithrombotics/antiplatelets; Z79.899 Other long term (current) drug therapy; Z79.84 Long term (current) use of oral hypoglycemic drugs
CPT/HCPCS: 36415; 71046; 80048; 80053; 80061; 82550; 82553; 83735; 83880; 84439; 84443; 84481; 84484; 85025; 85027; 85610; 85730; 93005; 93010; 93306; 96374; 99285; J1265; J1644; J1940; J2270; J3480; J3490; J7050